=== PATIENT | female | born 2000 | race Caucasian/White ===

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

== ENCOUNTER 2021-06-07 17:03 | Outpatient (REF) | payer BC, SELFPAY ==
[2021-06-08 15:15] LABS: Chlamydia Result Negative (Negative); GC Result Negative (Negative)
== END 2021-06-07 17:04 | disposition home or self-care (01) ==
LOC: LBN 17:03
PROVIDERS: PCP Pediatrics Adolescent Medicine; Visit Provider Nurse Practitioner Family
DX: Z11.3 Encounter for screening for infections with a predominantly sexual mode of transmission (principal)
CPT/HCPCS: 87491; 87591

== ENCOUNTER 2021-09-05 09:51 | Outpatient (REF) | payer BC, SELFPAY ==
[2021-09-07 14:32] LABS: COVID-19 RT-PCR UVMMC Result Negative (Negative)
== END 2021-09-05 09:52 | disposition home or self-care (01) ==
LOC: LBN 09:51
PROVIDERS: PCP Pediatrics Adolescent Medicine; Visit Provider Physician Assistant
DX: J02.9 Acute pharyngitis, unspecified (principal); Z20.822 Contact with and (suspected) exposure to COVID-19
CPT/HCPCS: U0003; 87070

== ENCOUNTER 2021-10-03 16:38 | Outpatient (REF) | payer BC, SELFPAY | END 2021-10-03 16:39 | disposition home or self-care (01) | LOC: LBN 16:38 | PROVIDERS: PCP Pediatrics Adolescent Medicine; Visit Provider Obstetrics & Gynecology | DX: N89.8 Other specified noninflammatory disorders of vagina (principal) | CPT/HCPCS: 87480; 87510; 87660 ==

== ENCOUNTER 2022-02-13 18:08 | Outpatient (REF) | payer BC, SELFPAY ==
[2022-02-15 11:57] LABS: COVID-19 RT-PCR UVMMC Result Negative (Negative)
== END 2022-02-13 18:09 | disposition home or self-care (01) ==
LOC: LBN 18:08
PROVIDERS: PCP Pediatrics Adolescent Medicine; Visit Provider Nurse Practitioner Family
DX: Z20.822 Contact with and (suspected) exposure to COVID-19 (principal)
CPT/HCPCS: U0003

== ENCOUNTER 2023-05-16 17:25 | Outpatient (REF) | payer BC, SELFPAY ==
[2023-05-16 23:00] LABS: Bacteria Rare HPF (Negative); Bilirubin Color Interference (Negative); Blood Color Interference (Negative); Clarity Cloudy (Clear); Epithelial Cells Rare HPF (Negative); Glucose Color Interference mg/dL (Negative); Ketones Color Interference mg/dL (Negative); Nitrite Color Interference (Negative); RBC 20-50 HPF (0-2); Specific Gravity 1.015 (1.005-1.025); Urobilinogen Color Interference mg/dL (Up to 0.2)
[2023-05-16 23:01] LABS: C & S Indicated? Yes; Casts Negative LPF (Negative); Leukocyte Esterase Color Interference (Negative); Mucus Negative (Negative)
== END 2023-05-16 17:26 | disposition home or self-care (01) ==
LOC: LBN 17:25
PROVIDERS: PCP Pediatrics Adolescent Medicine; Visit Provider Physician Assistant
DX: N39.0 Urinary tract infection, site not specified (principal)
CPT/HCPCS: 87077; 81003; 81015; 87086; 87186

== ENCOUNTER 2023-06-29 18:43 | Outpatient (REF) | payer BC, SELFPAY ==
--- NOTE | 2023-06-29 14:40 | PAPFT_PTH ---
PATIENT: Amie Davenport LOC: [facility] U#:[id number] AGE/SX: 22/F ROOM: RE06/29/[address]: Elizabeth Bonner : 2000 BED: DIS: 06/29/2023 SPEC #: [id number] RECD: 07/02/23 12:51 STATUS: GREGORY REEdgar #: [id number] MEENA: 06/29/23 14:[address]: Elizabeth Bonner DEPT: [facility] Cytology RECD BY: Elena Ocampo ENTERED: 07/02/23 12:51 SP TYPE: PAPFT OTHR DR: Alanna Lugo Tissues: 1 - CX/ENDOCX FOR PAP SMEARS Procedures: PAP THIN PREP/UVM Screening Comments: [id number]
[2023-07-01 22:35] LABS: Chlamydia Result Negative (Negative); GC Result Negative (Negative)
== END 2023-06-29 18:44 | disposition home or self-care (01) ==
LOC: LBN 18:43
PROVIDERS: PCP Pediatrics Adolescent Medicine; Visit Provider Obstetrics & Gynecology Gynecology
DX: Z11.3 Encounter for screening for infections with a predominantly sexual mode of transmission (principal); Z12.4 Encounter for screening for malignant neoplasm of cervix
CPT/HCPCS: 87491; 87591; 88142

== ENCOUNTER 2023-07-17 14:28 | Outpatient (REF) | payer BC, SELFPAY | END 2023-07-17 14:29 | disposition home or self-care (01) | LOC: LBN 14:28 | PROVIDERS: PCP Pediatrics Adolescent Medicine; Visit Provider Nurse Practitioner Women's Health | DX: R30.0 Dysuria (principal); R82.79 Other abnormal findings on microbiological examination of urine | CPT/HCPCS: 87086 ==

== ENCOUNTER 2023-11-29 11:47 | Emergency (ER) | payer BC, SELFPAY ==
[2023-11-29 11:56] VITALS: BP 144/92; PULSE 120; RESP 16; TEMP 36.5; O2SAT 100
--- NOTE | 2023-11-29 12:47 | W.ED.GENAD ---
HPI General Date/Time Provider Initiated Documentation: 11/29/23 12:46. Related Data Home Medications Medication Instructions Recorded Confirmed loratadine 10 mg tablet (Claritin) 10 mg PO PRN allergies #30 07/13/20 12/26/23 tab-caps prochlorperazine maleate 5 mg 5 mg PO TID PRN nausea and 09/26/23 12/26/23 tablet vomiting, headaches #30 tabs duloxetine 60 mg capsule,delayed 60 mg PO DAILY #30 caps 12/26/23 12/26/23 release propranolol 20 mg tablet See Rx Instructions .Route 12/26/23 12/26/23 .COMPLEX #90 tabs zolmitriptan 5 mg tablet See Rx Instructions PO .COMPLEX #9 12/26/23 12/26/23 tabs Previous Rx's Medication Instructions Recorded loratadine 10 mg tablet (Claritin) 10 mg PO PRN allergies #30 07/13/20 tab-caps prochlorperazine maleate 5 mg 5 mg PO TID PRN nausea and 09/26/23 tablet vomiting, headaches #30 tabs duloxetine 60 mg capsule,delayed 60 mg PO DAILY #30 caps 12/26/23 release propranolol 20 mg tablet See Rx Instructions .Route 12/26/23 .COMPLEX #90 tabs zolmitriptan 5 mg tablet See Rx Instructions PO .COMPLEX #9 12/26/23 tabs Allergies Allergy/AdvReac Type Severity Reaction Status Date / Time DUST MITES Allergy Intermediate Other (See Uncoded 12/26/23 12:16 Comment) General Stated Complaint: Headache MARISABEL: 4 Course Vital Signs Vital signs: Vital Signs Temperature 36.5 C 11/29/23 11:56 Pulse 120 H 11/29/23 11:56 Respiratory Rate 16 11/29/23 11:56 Blood Pressure 144/92 H 11/29/23 11:56 Pulse Oximetry 100 11/29/23 11:56 Temperature 36.5 C 11/29/23 11:56 Pulse 120 H 11/29/23 11:56 Respiratory Rate 16 11/29/23 11:56 Respiratory Effort Normal, Non-Labored 11/29/23 12:04 Blood Pressure 144/92 H 11/29/23 11:56 Blood Pressure Position Sitting 11/29/23 11:56 Pulse Oximetry 100 11/29/23 11:56 Oxygen Delivery Method Room Air 11/29/23 11:56 Oxygen Flow Rate 0 11/29/23 11:56 Pain Level 8 11/29/23 11:56 Medical Decision Making Pt with migraine headaches who has not gotten relief from meds at home. Received toradol and reglan with improvement. States feels better and wants to go home Medical Records Medical records reviewed: Yes I reviewed the patient's medical records. Lab Data Lab results reviewed: Yes I reviewed the patient's lab results. Quality:SDOH Health Related Social Needs: No Data to Display PFSH All Active Problems Routine screening for STI (sexually transmitted infection) (Acute) Dysuria (Acute) Contraception (Acute) OCP since early adolescence. 05/2023: poor compliance, will miss weeks at a time. Pt reluctant to use LARC. 06/2023. Strongly encouraged to use DepoProvera. Migraine headache without aura (Acute) Migraine headache (Chronic) Medical History Seasonal allergies Surgical History [place] teeth extracted Family History Father Asthma Social History Smoking/Tobacco Use Status: Never Smoking risk assessment performed?: Yes Alcohol Intake: never Drug use: Never Household members: other Details: 06/29/23. broke up with Jono now in new relationship. 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 loratadine [Claritin] 10 mg tablet 10 mg PO PRN Qty: 30 2RF No Action zolmitriptan 5 mg tablet See Rx Instructions PO .COMPLEX Qty: 9 5RF Rx Instructions: take 1 tab at onset of headache; if no relief, may repeat 1 tab after at least 2 hrs; max = 2 tabs/24 hrs PO duloxetine 60 mg capsule,delayed release(DR/EC) 60 mg PO DAILY Qty: 30 5RF propranolol 20 mg tablet See Rx Instructions .ROUTE .COMPLEX Qty: 90 3RF Dose Instruction: TAKE ONE TABLET BY MOUTH AT BEDTIME Rx Instructions: TAKE ONE TABLET BY MOUTH AT BEDTIME Discharge Instructions Instructions: Migraine Headache (ED) Discharge Data Discharge Date/Time-TO BE ENTERED AT DEPARTURE: 11/29/23 14:01 Discharge Physician: Ronni Mg
[2023-11-29] MEDS: diphenhydrAMINE 25 MG CAP PO (13:13)
[2023-11-29] MEDS: Ketorolac 30 MG/ML VIAL IM (13:13)
== END 2023-11-29 14:01 | disposition home or self-care (01) ==
PROVIDERS: Emergency Provider Emergency Medicine Emergency Medical Services
DX: G43.009 Migraine without aura, not intractable, without status migrainosus (principal)
CPT/HCPCS: 96372; 99283; J1885

== ENCOUNTER 2024-06-21 07:27 | Emergency (ER) | payer BC, SELFPAY ==
[2024-06-21 07:30] VITALS: BP 120/75; PULSE 125; RESP 18; TEMP 36.8; O2SAT 100
[2024-06-21 07:44] VITALS: PULSE 124
--- NOTE | 2024-06-21 07:55 | ED.GENADUL_ITS ---
Discharge Plan Disposition Patient Disposition: Home Condition: Stable Discharge Details Clinical Impression: Contusion of knee, right Primary Care Provider: Hazel Kim ED Provider: Ishan Napoles Home Meds and New Rx's Prescriptions: No Action prochlorperazine maleate 5 mg tablet 5 mg PO TID PRN (Reason: nausea and vomiting, headaches) Qty: 30 2RF Rx Instructions: Take 1-2 tablets every 8 hours as needed for headaches. zolmitriptan 5 mg tablet See Rx Instructions PO .COMPLEX Qty: 9 5RF Rx Instructions: take 1 tab at onset of headache; if no relief, may repeat 1 tab after at least 2 hrs; max = 2 tabs/24 hrs PO duloxetine 60 mg capsule,delayed release(DR/EC) 60 mg PO DAILY Qty: 30 5RF propranolol 20 mg tablet See Rx Instructions .ROUTE .COMPLEX Qty: 90 3RF Dose Instruction: TAKE ONE TABLET BY MOUTH AT BEDTIME Rx Instructions: TAKE ONE TABLET BY MOUTH AT BEDTIME loratadine [Claritin] 10 mg tablet 10 mg PO PRN Qty: 30 2RF Discharge Instructions Instructions: Minor Contusion ED Additional Instructions: * Your x-ray does not reveal an acute bony injury * Continue Pantera wrap and ice pack as needed for discomfort * You have been provided crutches to assist with ambulation and stairs to use as needed. Weightbearing as tolerated * Please take Motrin 600 mg every 6 hours or Tylenol 1000 mg every 4 hours as needed for pain * If you are having persistent symptoms, please follow-up with your primary care provider. HPI General Date/Time Provider Initiated Documentation: 06/21/24 07:51 . Limitations to Documentation: no limitations . Information obtained by: patient . HPI Narrative: 23-year-old female without significant past medical history presents for evaluation of right knee pain. She reports onset of pain yesterday when she hit her knee on the corner of the coffee table. She states that she had bruising and pain but no significant swelling. She states that she lives in an apartment and it has been difficult for her to get up and down the stairs. She states that she took a Motrin around 3 AM but otherwise has not tried any medication. She has been applying ice without significant relief of symptoms. Related Data Home Medications ?Medication ?Instructions ?Recorded ?Confirmed loratadine 10 mg tablet (Claritin) 10 mg PO PRN allergies #30 07/13/20 06/21/24 tab-caps prochlorperazine maleate 5 mg 5 mg PO TID PRN nausea and 09/26/23 06/21/24 tablet vomiting, headaches #30 tabs duloxetine 60 mg capsule,delayed 60 mg PO DAILY #30 caps 12/26/23 06/21/24 release propranolol 20 mg tablet See Rx Instructions .Route 12/26/23 06/21/24 .COMPLEX #90 tabs zolmitriptan 5 mg tablet See Rx Instructions PO .COMPLEX #9 12/26/23 06/21/24 tabs Previous Rx's ?Medication ?Instructions ?Recorded loratadine 10 mg tablet (Claritin) 10 mg PO PRN allergies #30 07/13/20 tab-caps prochlorperazine maleate 5 mg 5 mg PO TID PRN nausea and 09/26/23 tablet vomiting, headaches #30 tabs duloxetine 60 mg capsule,delayed 60 mg PO DAILY #30 caps 12/26/23 release propranolol 20 mg tablet See Rx Instructions .Route 12/26/23 .COMPLEX #90 tabs zolmitriptan 5 mg tablet See Rx Instructions PO .COMPLEX #9 12/26/23 tabs Allergies Allergy/AdvReac Type Severity Reaction Status Date / Time No Known Allergies Allergy Verified 06/21/24 07:32 General Stated Complaint: Orthopedic MARISABEL: 4 Exam Narrative Exam Narrative: Review of Systems: All systems reviewed & are unremarkable except as noted in HPI and below Well-developed, no acute distress NCAT PERRL, normal conjunctiva Tachycardic Unlabored respiratory effort Nondistended abdomen Scattered bruising on bilateral lower extremities noted the right knee has a little large area of anterior bruising without any instability or effusion appreciated. Her quad tendon and patella tendon appear to be intact with a normal straight leg raise. No calf tenderness no focal neurologic deficits Appropriate mood and affect Course Vital Signs Vital signs: Vital Signs Temperature 36.8 C 06/21/24 07:30 Pulse 125 H 06/21/24 07:30 Respiratory Rate 18 06/21/24 07:30 Blood Pressure 120/75 06/21/24 07:30 Pulse Oximetry 100 06/21/24 07:30 Temperature 36.8 C 06/21/24 07:30 Temperature Source Temporal Artery Scan 06/21/24 07:30 Pulse 124 H 06/21/24 07:44 Respiratory Rate 18 06/21/24 07:30 Respiratory Effort Normal, Non-Labored 06/21/24 07:44 Blood Pressure 120/75 06/21/24 07:30 Pulse Oximetry 100 06/21/24 07:30 Pain Level 6 06/21/24 07:44 Comment pt states HR usually high, not sure why 06/21/24 07:44 Medical Decision Making Emergent evaluation of acute traumatic right knee pain. There is superficial bruising noted without any instability or effusion appreciated. I doubt acute bony injury or significant ligamentous disruption given the mechanism of her injury. She has multiple bruises noted and she states that she bruises easily. Of note she is tachycardic however she does take propranolol for this. She has no symptoms concerning for possible pulmonary embolism., Significant pain or anxiety. Plan for pain control and x-ray imaging. Anticipate discharge with crutches as needed. 0915 V rad on significant delay for reading images. Currently weight time of 246 minutes. I have reviewed the x-ray and do not see or appreciate any acute bony injury. Will follow-up on final report. At this time recommend Pantera wrap, ice pack, pain control and crutches as needed. Weightbearing as tolerated. Patient will be discharged in good condition I recommend that she follow-up with her PCP. Quality:SDOH Health Related Social Needs: No Data to Display PFSH All Active Problems (Updated 06/21/24 @ 08:53 by Ishan Napoles MD) Contusion of knee, right (Acute) Right shoulder pain (Acute) Seasonal allergies (Acute) Contraception (Acute) OCP since early adolescence. 05/2023: poor compliance, will miss weeks at a time. Pt reluctant to use LARC. 06/2023. Strongly encouraged to use DepoProvera. Migraine headache without aura (Acute) Medical History Dysuria Surgical History [place] teeth extracted Family History Father Asthma Depression Mother Depression Maternal Grandmother Dementia Maternal Grandfather Colon cancer Paternal Grandfather Cancer Social History Smoking/Tobacco Use Status: Current every day Tobacco Type: e-cigarettes Second Hand Exposure: No Smoking risk assessment performed?: Yes Alcohol Intake: current Alcohol Intake frequency: holidays/special occasions only Alcohol type: hard liquor Drug use: Never Adopted: No Caregiver/Support person: No Household members: none Housing: apartment Number of Children: 0 Communication Needs: None Education Level: college 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 current occupation: [employer] Sexually active: Yes Do you think of yourself as: straight/heterosexual Current gender identity: female What is your relationship status?: never How often do you talk on the phone with friends or family?: three or more times per week How often do you get together with friends or relatives?: twice per week How often do you attend rastafarian or scientology services?: decline to answer Do you belong to any clubs or organized social groups?: no Panel score (0-1 are the most socially isolated patients): 1 What type of physical activity do you participate in: regular exercise Duration: 30-45 minutes/day Frequency: 5-6 times per week Tanvi/Temple: Non bahai Special tanvi needs: No Seatbelt use: always Drive intox or ride w/intox 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
[2024-06-21] MEDS: Ibuprofen 600 MG TAB PO (08:00)
[2024-06-21] MEDS: Acetaminophen 500 MG TAB 1000 MG PO (08:00)
--- NOTE | 2024-06-21 08:12 | DI.RAD_ITS ---
Exam(s) XR KNEE RT 3V AP,LAT,JASON EXAM: XR KNEE RT 3V AP,LAT,JASON CLINICAL HISTORY: right knee pain. TECHNIQUE: 2D digital imaging was performed. COMPARISON: No exams were available for comparison FINDINGS: 3 views No evidence of acute fracture. There appears to be small amount of increased joint fluid. Bone dens ity normal. No osseous lesions. No osteochondral defects. IMPRESSION: No acute osseous findings. Small joint effusion. DATA REPOSITORY: RADIATION DOSE DELIVERED:
--- NOTE | 2024-06-21 10:28 | DI.VRAD_ITS ---
PROCEDURE INFORMATION: Exam: XR Right Knee Exam date and time: 06/21/2024 8:08 AM Age: 23 years old Clinical indication: Pain; Knee; Right; Patient HX: Fall TECHNIQUE: Imaging protocol: Radiologic exam of the right knee. Views: 3 views. COMPARISON: CR RIGHT KNEE 3 VIEWS 04/25/2018 12:31 PM FINDINGS: Bones/joints: No fracture or other osseous abnormality. Joint spaces are well preserved. No significant effusion. No varus or valgus angulation. Soft tissues: Normal. IMPRESSION: Normal knee. Dictated and Authenticated by: Star Huynh MD. Ordering:[facility] Yesika Ballard MD
== END 2024-06-21 09:31 | disposition home or self-care (01) ==
PROVIDERS: Emergency Provider Emergency Medicine; PCP Nurse Practitioner Family
DX: M25.561 Pain in right knee (principal); W22.8XXA Striking against or struck by other objects, initial encounter
CPT/HCPCS: 73562; 99283; 99282

== ENCOUNTER 2025-05-06 09:48 | Outpatient (REF) | payer BC, SELFPAY | END 2025-05-06 09:49 | disposition home or self-care (01) | LOC: LBN 09:48 | PROVIDERS: PCP Nurse Practitioner Family; Visit Provider Obstetrics & Gynecology | DX: N39.0 Urinary tract infection, site not specified (principal); B95.7 Other staphylococcus as the cause of diseases classified elsewhere | CPT/HCPCS: 87077; 87086; 87186; 87480; 87510; 87660 ==